=== PATIENT | female | born 1960 | race Caucasian/White ===

== ENCOUNTER 2022-01-07 19:44 | Emergency (ER) | payer MEDICAID ==
[~2022-01-07] VITALS: Ht 147.3 cm; Wt 74.0 kg
[2022-01-07] MEDS ORDERED: METO100T16 MT (20:04)
[2022-01-07] MEDS ORDERED: ACETAMINOPHEN 325MG TABLET PO ONE (21:30)
[2022-01-07] MEDS ORDERED: LIDOCAINE 5% PATCH TOP SCH (21:30)
[2022-01-07] MEDS ORDERED: IBUPROFEN 400MG TABLET PO ONE (23:30)
[2022-01-07 23:46] VITALS: BP 165/80
== END 2022-01-08 00:12 | disposition home or self-care (01) ==
LOC: ER 19:44
DX: M54.2 Cervicalgia (principal); E11.9 Type 2 diabetes mellitus without complications; I10 Essential (primary) hypertension; G43.909 Migraine, unspecified, not intractable, without status migrainosus; Z86.011 Personal history of benign neoplasm of the brain; Z98.890 Other specified postprocedural states; Z88.0 Allergy status to penicillin; V43.62XA Car passenger injured in collision with other type car in traffic accident, initial encounter; Y93.89 Activity, other specified; Y92.488 Other paved roadways as the place of occurrence of the external cause
CPT/HCPCS: 99284